=== PATIENT | female | born 1975 | race Caucasian/White ===

== ENCOUNTER 2016-11-10 12:34 | Emergency (ER) | payer MEDICAID ==
[~2016-11-10 12:34] MED LIST: OMEPRAZOLE DR20 M1 PO
[2016-11-10 14:00] LABS: BASOPHIL % 0.5 % (0-2); PLATELET COUNT 290 x10^3mcL (130-400); RED CELL DISTRIBUTION WIDTH 12.9 % (11.5-14.5)
[2016-11-10 14:42] LABS: CALCIUM 8.2 mg/dL (8.5-10.1); CARBON DIOXIDE 25.4 mmol/L (21-32); CHLORIDE SERUM 104 mmol/L (98-107); CREATININE SERUM 0.7 mg/dL (0.6-1.0); GFR1 > 60 mL/min; GLUCOSE SERUM 88 mg/dL (74-106); POTASSIUM SERUM 3.1 mmol/L (3.5-5.1); SODIUM SERUM 137 mmol/L (136-145)
[2016-11-10 14:47] LABS: ALBUMIN 3.4 g/dL (3.4-5.0); ALKALINE PHOSPHATASE 84 U/L (46-116); ALT/SGPT 42 U/L (14-59); AST/SGOT 22 U/L (15-37); BILIRUBIN TOTAL 0.5 mg/dL (0.20-1.00); TOTAL PROTEIN, SERUM 7.4 g/dL (6.4-8.2)
[2016-11-10 15:37] VITALS: BP 120/74
== END 2016-11-10 15:37 | disposition home or self-care (01) ==
LOC: ED 12:34
PROVIDERS: Emergency Medicine
DX: K62.5 Hemorrhage of anus and rectum (principal); K64.9 Unspecified hemorrhoids; E87.6 Hypokalemia; M79.1 Myalgia; R51 Headache
CPT/HCPCS: 36415; J1885

== ENCOUNTER 2017-08-11 17:15 | Emergency (ER) | payer MEDICAID ==
[~2017-08-11] VITALS: Ht 152.4 cm; Wt 79.8 kg
[2017-08-11 17:21] VITALS: BP 154/62; Ht 152.4 cm; Wt 79.8 kg
== END 2017-08-11 19:07 | disposition home or self-care (01) ==
LOC: ED 17:15
DX: A08.4 Viral intestinal infection, unspecified (principal)
CPT/HCPCS: J1885

== ENCOUNTER 2017-12-04 14:26 | Emergency (ER) | payer MEDICAID ==
[~2017-12-04] VITALS: Ht 165.1 cm; Wt 83.5 kg
[2017-12-04 14:31] VITALS: BP 132/73; Ht 165.1 cm; Wt 83.5 kg
[2017-12-04 16:28] LABS: BASOPHIL % 0.8 % (0-2); PLATELET COUNT 322 x10^3mcL (130-400); RED CELL DISTRIBUTION WIDTH 13.5 % (11.5-14.5)
[2017-12-04 16:38] LABS: CALCIUM 8.5 mg/dL (8.5-10.1); CARBON DIOXIDE 25.2 mmol/L (21-32); CHLORIDE SERUM 106 mmol/L (98-107); CREATININE SERUM 0.9 mg/dL (0.6-1.0); GFR1 > 60 mL/min; GLUCOSE SERUM 108 mg/dL (74-106); POTASSIUM SERUM 3.4 mmol/L (3.5-5.1); SODIUM SERUM 139 mmol/L (136-145)
[2017-12-04 16:43] LABS: ALBUMIN 3.6 g/dL (3.4-5.0); ALKALINE PHOSPHATASE 97 U/L (46-116); ALT/SGPT 64 U/L (14-59); AST/SGOT 34 U/L (15-37); BILIRUBIN TOTAL 0.42 mg/dL (0.20-1.00); TOTAL PROTEIN, SERUM 7.7 g/dL (6.4-8.2)
== END 2017-12-04 17:36 | disposition home or self-care (01) ==
LOC: ED 14:26
PROVIDERS: Emergency Medicine
DX: S63.8X1A Sprain of other part of right wrist and hand, initial encounter (principal); X58.XXXA Exposure to other specified factors, initial encounter; Y93.89 Activity, other specified; Y92.89 Other specified places as the place of occurrence of the external cause; Y99.8 Other external cause status
CPT/HCPCS: 36415; Q0092

== ENCOUNTER 2018-06-23 09:13 | Emergency (ER) | payer MEDICAID ==
[~2018-06-23] VITALS: Ht 167.6 cm; Wt 83.9 kg
[2018-06-23 09:19] VITALS: Ht 167.6 cm; Wt 83.9 kg
[2018-06-23 11:42] VITALS: BP 126/85
== END 2018-06-23 11:41 | disposition home or self-care (01) ==
LOC: ED 09:13
DX: S93.402A Sprain of unspecified ligament of left ankle, initial encounter (principal); S93.602A Unspecified sprain of left foot, initial encounter; W01.0XXA Fall on same level from slipping, tripping and stumbling without subsequent striking against object, initial encounter; Y93.89 Activity, other specified; Y92.89 Other specified places as the place of occurrence of the external cause; Y99.8 Other external cause status
CPT/HCPCS: Q0092